=== PATIENT | male | born 1980 | race Caucasian/White ===

== ENCOUNTER 2017-08-27 16:39 | Emergency (ER) | payer BC ==
[2017-08-27] MEDS ORDERED: Lidocaine 1% 20 ML MDV INJECT ONE (16:48)
[2017-08-27] MEDS ORDERED: Lidocaine 2% Viscous Solution 15 ML Cup PO ONE (16:49)
[2017-08-27] MEDS ORDERED: Benzocaine 20% Topical Spray UD MUCMEM ONE (16:49)
[2017-08-27] MEDS ORDERED: Bacitracin Oint 1 GM U/D Packet TOP ONE (17:03)
[2017-08-27] MEDS ORDERED: Diphtheria,Pertussis(Acell),Tetanus Vaccine 0.5 ML Syringe IM ONE (17:23)
--- NOTE | 2017-08-27 17:29 | EDM.PDOC ---
ED HPI GENERAL MEDICAL PROBLEM - General Chief Complaint: Laceration Stated Complaint: LACERATION CHIN Time Seen by Provider: 08/27/17 16:53 Source of Information: Reports: Patient, Significant Other History Limitations: Reports: No Limitations - History of Present Illness INITIAL COMMENTS - FREE TEXT/NARRATIVE: HISTORY AND PHYSICAL: []36-year-old male who was walking across the floor his sock caught in the nail by the stairway and he fell down 14 steps History of Present Illness: []Presented right after incident with a laceration to his chin. denies any loss of consciousness. Denies any Review of Systems: As per history of present illness and below otherwise all systems reviewed and negative. Past medical history: As per history of present illness and as reviewed below otherwise noncontributory. Surgical history: As per history of present illness and as reviewed below otherwise noncontributory. Social history: No reported history of drug or alcohol abuse. Family history: As per history of present illness and as reviewed below otherwise noncontributory. Physical exam: Alert gentleman who is answering questions appropriately. speaking in full sentences without any shortness of breath. HEENT: Atraumatic, normocehpalic, pupils reactive, negative for conjunctival pallor or scleral icterus, mucous membranes moist, throat clear, neck supple, nontender, trachea midline. Laceration 2.5 cm to chin. Lungs: Clear to auscultation, breath sounds equal bilaterally, chest non tender. Heart: S1S2, regular, negative for clicks, rubs, or JVD. Abdomen: Soft, nondistended, nontender. Negative for masses or hepatossplenmegaly. Negative for costovertebral tenderness. Pelvis: Stable nontender. Genitourinary: Deferred. Rectal: Deferred Extremities: Atraumatic, negative for cords or calf pain. Neurovascular unremarkable. Neuro: Awake, alert, oriented. Cranial nerves II through XII unremarkable. Cerebellum unremarkable. Motor and sensory unremarkable throughout. Exam nonfocal. Diagnostics: [] Therapeutics: []Sutures placed Impression: [Laceration with repair] Plan: []Discharged to home Sutures out in 7-10 days Definitive disposition and diagnosis as appropriate pending reevaluation and review of above. Tooth/Teeth Pain Score (Numeric/FACES): 6 - Related Data Allergies Allergy/AdvReac Type Severity Reaction Status Date / Time No Known Allergies Allergy Verified 08/27/17 16:49 Home Meds: Home Meds . [No Known Home Meds] 09/21/16 [History] Past Medical History - Past Health History Medical/Surgical History: Denies Medical/Surgical History HEENT History: Cardiovascular History: Psychiatric History: Reports: Depression - Past Surgical History Head Surgeries/Procedures: Reports: None Social & Family History - Family History Family Medical History: Noncontributory - Tobacco Use Smoking Status *Q: Never Smoker - Caffeine Use Caffeine Use: Reports: Coffee, Energy Drinks - Recreational Drug Use Recreational Drug Use: No Drug Use in Last 12 Months: No ED ROS GENERAL - Review of Systems Review Of Systems: ROS reveals no pertinent complaints other than HPI. ED EXAM, SKIN/RASH Exam: See Below (See dictation) ED SKIN PROCEDURES - Laceration/Wound Repair Middle Midline Face Lac/Wound length In cm: 2.5 Appearance: Muscle, Linear, Clean Distal NVT: Neuro & Vascular Intact, No Tendon Injury Anesthetic Type: Local Local Anesthesia - Lidocaine (Xylocaine): 1% Plain Local Anesthetic Volume: 5cc Skin Prep: Saline, Sterile Drape Exploration/Debridement/Repair: Wound Explored, In a Bloodless Field, Explored to Base, Minimal Debridement Suture Size: 4-0 # of Sutures: 5 Suture Type: Nylon, Interrupted Suture Size: 4-0 # of Sutures: 1 Repaired with: Chromic Drain Placement: No Sterile Dressing Applied: Nurse Tetanus Status Addressed: Yes Complications: No Course - Vital Signs Last Recorded V/S: Last Vital Signs Temp 36.6 C 08/27/17 16:44 Pulse 87 08/27/17 16:44 Resp 20 08/27/17 16:44 BP 165/97 H 08/27/17 16:44 Pulse Ox 95 08/27/17 16:44 - Orders/Labs/Meds Orders: Active Orders 24 hr Category Date Time Status Vaccines to be Administered [RC] PER UNIT ROUTINE Care 08/27/17 17:23 Ordered Diphth,Pertuss(Acell),Tet Vac [Adacel] Med 08/27/17 17:23 Once 0.5 ml IM .ONCE ONE Meds: Medications Discontinued Medications Generic Name Dose Route Start Last Admin Trade Name Freq PRN Reason Stop Dose Admin Bacitracin 1 dose 08/27/17 17:03 Bacitracin Oint 1 Gm TOP 08/27/17 17:04 ONETIME ONE Benzocaine 2 each 08/27/17 16:49 Hurricaine One 20% MUCMEM 08/27/17 16:50 ONETIME ONE Lidocaine HCl 20 ml 08/27/17 16:48 Xylocaine 1% INJECT 08/27/17 16:49 ONETIME ONE Lidocaine HCl 15 ml 08/27/17 16:49 Xylocaine 2% Viscous PO 08/27/17 16:50 ONETIME ONE Departure - Departure Time of Disposition: 17:28 Disposition: Home, Self-Care 01 Condition: Good Clinical Impression: Laceration of chin without complication Qualifiers: Encounter type: initial encounter Qualified Code(s): S01.81XA - Laceration without foreign body of other part of head, initial encounter - Discharge Information Instructions: Laceration Care, Adult, [id number] Referrals: PCP,None [Primary Care Provider] - Additional Instructions: The following information is given to patients seen in the emergency department who are being discharged to home. This information is to outline your options for follow-up care. We provide all patients seen in our emergency department with a follow-up referral. The need for follow-up, as well as the timing and circumstances, are variable depending upon the specifics of your emergency department visit. If you don't have a primary care physician on staff, we will provide you with a referral. We always advise you to contact your personal physician following an emergency department visit to inform them of the circumstance of the visit and for follow-up with them and/or the need for any referrals to a consulting specialist. The emergency department will also refer you to a specialist when appropriate. This referral assures that you have the opportunity for followup care with a specialist. All of these measure are taken in an effort to provide you with optimal care, which includes your followup. Under all circumstances we always encourage you to contact your private physician who remains a resource for coordinating your care. When calling for followup care, please make the office aware that this follow-up is from your recent emergency room visit. If for any reason you are refused follow-up, please contact the emergency department at and asked to speak to the emergency department charge nurse. Sutures out in 7-10 days Keep area Clean and dry may use antibiotic ointment to this area - My Orders Last 24 Hours: My Active Orders 08/27/17 17:23 Vaccines to be Administered [RC] PER UNIT ROUTINE Diphth,Pertuss(Acell),Tet Vac [Adacel] 0.5 ml IM .ONCE ONE - Assessment/Plan Last 24 Hours: My Active Orders 08/27/17 17:23 Vaccines to be Administered [RC] PER UNIT ROUTINE Diphth,Pertuss(Acell),Tet Vac [Adacel] 0.5 ml IM .ONCE ONE
[2017-08-27 17:40] VITALS: BP 124/84
== END 2017-08-27 17:54 | disposition home or self-care (01) ==
LOC: MW.ED 16:39
DX: S01.81XA Laceration without foreign body of other part of head, initial encounter (principal); W10.9XXA Fall (on) (from) unspecified stairs and steps, initial encounter; Z23 Encounter for immunization
CPT/HCPCS: 12011; 90471; 90715; 99283; A9270; 99282

== ENCOUNTER 2020-01-20 21:59 | Emergency (ER) | payer BC ==
[2020-01-20] MEDS ORDERED: Ondansetron 4 MG Tab.DIS PO ONE (22:19)
--- NOTE | 2020-01-20 22:31 | EDM.PDOC ---
ED [facility] GENERAL MEDICAL PROBLEM - General Chief Complaint: Gastrointestinal Problem Stated Complaint: FEVER,VOMITTING,DIARRHEA Time Seen by Provider: 01/20/20 22:29 Source of Information: Reports: Patient History Limitations: Reports: No Limitations - History of Present Illness INITIAL COMMENTS - FREE TEXT/NARRATIVE: Patient is a 39-year-old male no significant past medical history presenting with chief complaint of vomiting and diarrhea. Patient has had the symptoms for the last 12 hours. Patient states the symptoms started this morning. Patient reports not being able to keep anything down. Patient has attempted dietary modifications without any improvement in symptoms. Patient reports some subjective fevers as well as some URI symptoms. Patient states he has associated diffuse abdominal discomfort which is not localized. Denies any recent travels any sick contacts or any bad food. Pmhx: None Pshx: None Family Hx: noncontributory Smoking history? no Etoh use? none Drug use? none In addition to that documented in the HPI above, the additional ROS was obtained : Constitutional: Denies fevers or chills Eyes: Denies vision changes ENMT: Denies sore throat CV: Denies chest pain Resp: Denies SOB GI: Per HPI : Denies painful urination MSK: Denies recent trauma Skin: Denies new rashes Neuro: Denies new numbness or tingling or weakness Endocrine: Denies unexpected weight loss Heme: Denies bleeding disorders I have reviewed the triage vital signs Const: Well nourished, well developed, appears stated age Eyes: PERRL, no conjunctival injection HENT: NCAT, Neck supple without meningismus CV: RRR, Warm, well-perfused extremities RESP: CTAB, Unlabored respiratory effort GI: soft, non-tender, non-distended, no masses MSK: No gross deformities appreciated Skin: Warm, dry. No rashes Neuro: Alert, human resources intern II-XII grossly intact. Sensation and motor function of extremities grossly intact. Psych: Appropriate mood and affect Assessment and plan: 39-year-old male presenting with vomiting and diarrhea. Patient is a normal abdominal exam no signs of surgical abdomen. Patient has generalized abdominal discomfort but no focalized pain. Differential diagnosis considered includes appendicitis, colitis, bowel obstruction however she has been consistent with the patient's history and exam. Patient given Zofran in the emergency department with improvement of symptoms. Patient is now tolerating oral liquids. Patient given strict return precautions all questions addressed and answered. Patient agrees with plan. Abdominal Pain Score (Numeric/FACES): 5 - Related Data Allergies Allergy/AdvReac Type Severity Reaction Status Date / Time No Known Allergies Allergy Verified 08/27/17 16:49 Home Meds: Home Meds . [No Known Home Meds] 09/21/16 [History] Past Medical History - Past Health History Medical/Surgical History: Denies Medical/Surgical History HEENT History: Cardiovascular History: Psychiatric History: Reports: Depression - Infectious Disease History Infectious Disease History: Reports: Chicken Pox - Past Surgical History Head Surgeries/Procedures: Reports: None Musculoskeletal Surgical History: Reports: Other (See Below) Other Musculoskeletal Surgeries/Procedures:: right hand surgery Social & Family History - Family History Family Medical History: Noncontributory - Tobacco Use Smoking Status *Q: Light Tobacco Smoker Years of Tobacco use: 10 Packs/Tins Daily: 0.5 - Caffeine Use Caffeine Use: Reports: Coffee - Recreational Drug Use Recreational Drug Use: Yes Recreational Drug Type: Reports: Marijuana/Hashish Recreational Drug Use Frequency: Rarely ED ROS GENERAL - Review of Systems Review Of Systems: See Below ED EXAM, GI/ABD - Physical Exam Exam: See Below Course - Vital Signs Last Recorded V/S: Last Vital Signs Temp 37.2 C 01/20/20 22:07 Pulse 104 H 01/20/20 22:07 Resp 17 01/20/20 22:07 BP 123/87 01/20/20 22:07 Pulse Ox 98 01/20/20 22:07 - Orders/Labs/Meds Meds: Medications Discontinued Medications Generic Name Dose Route Start Last Admin Trade Name Donovan PRN Reason Stop Dose Admin Ondansetron HCl 4 mg 01/20/20 22:19 01/20/20 22:31 Zofran Odt PO 01/20/20 22:20 4 mg ONETIME ONE Administration Departure - Departure Time of Disposition: 22:57 Disposition: Home, Self-Care 01 Clinical Impression: Vomiting - Discharge Information Instructions: Nausea and Vomiting, Adult Referrals: PCP,None [Primary Care Provider] - Forms: ED Department Discharge Additional Instructions: The following information is given to patients seen in the emergency department who are being discharged to home. This information is to outline your options for follow-up care. We provide all patients seen in our emergency department with a follow-up referral. The need for follow-up, as well as the timing and circumstances, are variable depending upon the specifics of your emergency department visit. If you don't have a primary care physician on staff, we will provide you with a referral. We always advise you to contact your personal physician following an emergency department visit to inform them of the circumstance of the visit and for follow-up with them and/or the need for any referrals to a consulting specialist. The emergency department will also refer you to a specialist when appropriate. This referral assures that you have the opportunity for follow-up care with a specialist. All of these measure are taken in an effort to provide you with optimal care, which includes your follow-up. Under all circumstances we always encourage you to contact your private physician who remains a resource for coordinating your care. When calling for follow-up care, please make the office aware that this follow-up is from your recent emergency room visit. If for any reason you are refused follow-up, please contact the [facility] Emergency Department at and asked to speak to the emergency department charge nurse. Sepsis Event Note - Evaluation Sepsis Screening Result: No Definite Risk - Focused Exam Vital Signs: Vital Signs Temp Pulse Resp BP Pulse Ox 01/20/20 22:07 37.2 C 104 H 17 123/87 98 Date Exam was Performed: 01/20/20 Time Exam was Performed: 23:03
[2020-01-20 23:30] VITALS: BP 121/82; PULSE 92
== END 2020-01-20 23:15 | disposition home or self-care (01) ==
LOC: MW.ED 21:59
DX: R11.10 Vomiting, unspecified (principal); F17.210 Nicotine dependence, cigarettes, uncomplicated
CPT/HCPCS: 99283; A9270